=== PATIENT | male | born 1975 | race Caucasian/White ===

== ENCOUNTER 2019-08-28 09:33 | Emergency (ER) | payer SELFPAY ==
[2019-08-28 09:37] VITALS: BP 139/71; PULSE 63; RESP 16; TEMP 36.6; O2SAT 100; BMI 22.4
[2019-08-28 09:56] VITALS: RESP 15
--- NOTE | 2019-08-28 09:58 | W.ED.SKABFB ---
HPI - Skin/Abscess/Foreign Bdy General: Chief complaint: Skin/Abscess/Foreign Body Stated complaint: KNOT ON FACE Time Seen by Provider: 08/28/19 09:44 History of Present Illness: HPI narrative: Patient has an area near his left eyelid inner canthus that has gotten progressively larger over the last 2 months. Does not remember how it started does not hurt it does not swell has not been hot to the touch just get larger. Patient does not have primary care just moved here from [place]. Has no insurance. MD complaint: lesion Onset (ago): month(s) Tetanus up to date: unsure Location: face Severity: mild Pain Consistency: other (None) Associated symptoms: Deny chills or fever(s) Review of Systems Const: Denies: fever or chills Skin/Breast: Reports: skin swelling (Blow the bridge of nose near the inner canthus left side) and non-healing lesion PFSH ED PFSH: Social History Smoking and tobacco status: former smoker Physical Exam Const: COMMON NORMALS: no apparent distress Psych: COMMON NORMALS: mental status grossly normal Skin: OTHER: Has suspicious looking cyst on the side of nose near the inner canthus left eye Procedures Abscess I/D Site: face Side (if applicable): left Local Anesthetic: lidocaine 1% Amount of anesthesia used (mL): 0.5 Technique: incised with #11 blade Irrigation: No Packing used?: none Course Vital Signs: Vital signs: Vital Signs Temperature 98 F 08/28/19 09:37 Pulse Rate 63 08/28/19 09:37 Respiratory Rate 16 08/28/19 09:37 Blood Pressure 139/71 08/28/19 09:37 Pulse Oximetry 100 08/28/19 09:37 Coding Level of Care Code ED [facility] Attendant for Chg Fwd Exam Expanded Problem Focused
[2019-08-28 10:18] VITALS: RESP 17
== END 2019-08-28 10:18 | disposition home or self-care (01) ==
PROVIDERS: Emergency Provider Nurse Practitioner Family
DX: J34.1 Cyst and mucocele of nose and nasal sinus (principal); Z87.891 Personal history of nicotine dependence
CPT/HCPCS: 10060; 12345; 99281; 99282